=== PATIENT | female | born 2000 | race Caucasian/White ===

== ENCOUNTER 2021-10-21 22:16 | Inpatient (IN) ==
--- NOTE | 2021-10-21 22:38 | History & Physical Report ---
Date of Service October 21, 2021 Assessment & Plan (1) Active labor at term: Plan: admit, iv, labs. fhts categ 1. prefers to labor naturally. her water did not break last . may need arom. pt aware. History of Present Illness Chief Complaint: regular ctx Primary Care Provider: NO PCP 21yo at 40 4/7wks ega with cc of regular ctx. No rom, vb. +FM. Contraction q 2-4. PNC c/b. 1. Late presentation PNL RH pos, RI, GBS neg OBH: x 1 GYNH: nl paps Allergies Allergy/AdvReac Type Severity Reaction Status Date / Time No Known Allergies Allergy Verified 10/19/21 10:22 Home Medications Medication Instructions Recorded Confirmed Type prenat.vits,leon,xlf-lmqa-glylq 1 tab PO DAILY 07/03/21 10/19/21 History Patient History Medical History (Updated 10/21/21 @ 22:50 by Fidelia Bahena MD, FACOG) Chicken pox Varicella vaccination Surgical History (Updated 07/03/21 @ 15:28 by Carmen WILBURN, LASHAWN) No significant past surgical history Family History (Updated 07/03/21 @ 15:16 by Carmen WILBURN, LASHAWN) Grandfather (Maternal) Lung cancer Aunt Breast cancer Denies family history of Ovarian cancer Diabetes Colorectal cancer Hypertension Social History (Updated 07/03/21 @ 15:28 by Carmen WILBURN, RN) Smoking Status: Never smoker marital status: Single marital status details: D'Ante Hickman (21) [phone] Current Living Situation: Significant Other Current Living Situation Comment: Boyfriend and daughter, 2 dogs current occupational status: employed current occupation: Director Retirement at [employer] Review of Systems as per Subjective / HPI Physical Exam Constitutional: WD/WN, vitals as above Gastrointestinal (Abdomen): soft gravid nt efw 7-8# Musculoskeletal: no edema Neurologic: grossly normal Psychiatric: A+Ox3, euthymic affect Genitourinary: Manual OB Exam: + cervical dilation 7 cm, + cervical effacement 100% and + station 0 OB Exam Monitor Tracing: + external FHT monitor used, + external uterine monitor used (q2-4), + category I and + normal FHT variability Results & Data ([place]) Vital Signs (Past 12 Hours) Vital Signs Pulse BP 10/21/21 22:35 86 112/79 Coding Level of Care Code None Diagnoses Active labor at term
[2021-10-21] MEDS ORDERED: OXYTOCIN 30 UNITS/500 ML BAG IV PRN (22:44)
[2021-10-21] MEDS: LACTATED RINGER'S 1,000 ML IV PRN (23:09)
[2021-10-21 23:13] LABS: Hematocrit (blood only) 36.7 % (37-47); Hemoglobin 12.2 g/dL (12.0-16.0); Mean Corpuscular Hemoglobin 31.2 pg (25-34); Mean Corpuscular Hgb Conc 33.2 g/dL (32-36); Mean Corpuscular Volume 93.9 fL (80-100); Platelet Count 282 K/uL (130-400); RDW Coefficient of Variation 13.3 % (11.5-14.5); RDW Standard Deviation 45.3 fL (36.4-46.3); Red Blood Count 3.91 M/uL (4.2-5.4); White Blood Count 11.21 K/uL (4.8-10.8)
[2021-10-21] MEDS ORDERED: SODIUM CHLORIDE 0.9% INJ 10 ML VIAL ONE (23:14)
[2021-10-21] MEDS ORDERED: ePHEDrine sulfate 50 MG/ML AMP ONE (23:14)
[2021-10-21] MEDS ORDERED: fentaNYL citrate 100 MCG/2 ML VIAL ONE (23:14)
[2021-10-21] MEDS ORDERED: fentaNYL 2MCG/ML ROPIVACAINE 1.25MG/ML 100 ML BAG EPI ONE (23:15)
[2021-10-21] MEDS ORDERED: BUPIVACAINE 0.25% 30 ML VIAL ONE (23:15)
[2021-10-21] MEDS ORDERED: NALOXONE HCL 0.4 MG/1 ML VIAL/CARP IV PRN (23:31)
[2021-10-21] MEDS ORDERED: ONDANSETRON INJ 2 MG/ML 2 ML VIAL IV PRN (23:31)
[2021-10-21] MEDS ORDERED: NALOXONE HCL 1 MG in SODIUM CHLORIDE 0.9% 1000ML 1,000 ML IV PRN (23:31)
[2021-10-21] MEDS ORDERED: NALBUPHINE HCL INJ 10 MG/ML AMP IV PRN (23:31)
[2021-10-21] MEDS ORDERED: fentaNYL 2MCG/ML ROPIVACAINE 1.25MG/ML 100 ML BAG EPI PRN (23:31)
[2021-10-21] MEDS ORDERED: ePHEDrine sulfate 50 MG/ML AMP IV PRN (23:31)
[2021-10-21] MEDS ORDERED: diphenhydrAMINE 50 MG/ML VIAL IV PRN (23:31)
--- NOTE | 2021-10-21 23:33 | Anesthesiology Consultation ---
Date of Service October 21, 2021 Assessment & Plan (1) Encounter for pre-operative examination: Chart Review Chart Review: Patient NOT seen in Pre Admission Testing and Acceptable Risk for Labor Epidural Consults Requested none History Allergies Allergy/AdvReac Type Severity Reaction Status Date / Time No Known Allergies Allergy Verified 10/19/21 10:22 Medications Home Medications Medication Instructions Recorded Confirmed Last Taken prenat.vits,leon,rgg-oqup-ypsky 1 tab PO DAILY 07/03/21 10/19/21 Unknown Active Medications Generic Name Dose Route Start Last Admin Trade Name Freq PRN Reason Stop Dose Admin Lactated Ringer's 1,000 mls @ 125 mls/hr 10/21/21 22:44 10/21/21 23:09 Lr IV 10/23/21 22:43 999 mls/hr .Q8H PRN Administration L&D Protocol Protocol Past Medical History Medical History Chicken pox Varicella vaccination Exercise / Class Metabolic Activity II 4-5 Yardwork/Stairs/Walk up hill Past Family History Family History Grandfather (Maternal) Lung cancer Aunt Breast cancer Denies family history of Ovarian cancer Diabetes Colorectal cancer Hypertension Past Surgical History Surgical History No significant past surgical history Past Anesthesia History No Hx of Anesthesia Complications and No Family Hx of Anesthesia Complications History of PONV No Hx of PONV and No Hx of Motion Sickness Social History Smoking Status: Never smoker Physical Exam Vital Signs Last Vital Signs Pulse 75 10/21/21 23:50 BP 167/76 H 10/21/21 23:50 Pulse Ox 99 10/21/21 23:48 Testing Laboratory Results 10/21/21 22:53
[2021-10-22] MEDS: LACTATED RINGER'S 1,000 ML IV PRN (00:12)
--- NOTE | 2021-10-22 01:56 | Delivery Summary ---
Vaginal Delivery Summary Date of Service October 22, 2021 Vaginal Delivery Summary The patient dilated to complete and pushed to deliver a viable female infant Apgars 8 and 9 via over intact perineum. Mouth and nose bulb suctioned at perineum. Shoulders and body delivered with ease. Infant was vigorous and crying at . Cord clamped at 60 seconds of life and to maternal abdomen where the cord was then doubly clamped and cut. Placenta delivered spontaneously and intact, three-vessel cord. Hemostasis achieved with dilute pitocin and uterine massage and drainage of the bladder for approximately 75 cc under sterile conditions. Cervix and sulci intact. Bilateral periurethral lacerations reapproximated with 4-0 vicryl. EBL 300 cc. Mother and baby in stable recovery. [facility] Vaginal Delivery Charge Delivery Type Details:
[2021-10-22] MEDS ORDERED: oxyCODONE/ACETAMINOPHEN 5mg/325mg TAB PO PRN (02:33)
[2021-10-22] MEDS ORDERED: OXYTOCIN 20 UNITS in LACTATED RINGER'S 1,000 ML IV SCH (02:33)
[2021-10-22] MEDS ORDERED: ACETAMINOPHEN 325 MG TAB PO PRN (02:33)
[2021-10-22] MEDS ORDERED: OXYTOCIN 30 UNITS/500 ML BAG IV PRN (02:33)
[2021-10-22] MEDS ORDERED: HYDROCORTISONE ACETATE 25 MG SUPP PR PRN (02:33)
[2021-10-22] MEDS ORDERED: DIPHTHERIA/TETANUS/PERTUSSIS 0.5 ML SYR/VIAL IM ONE (02:33)
[2021-10-22] MEDS ORDERED: BENZOCAINE 20% AER SPR 82.5 GM CAN EXT PRN (02:33)
--- NOTE | 2021-10-22 03:30 | Anesthesia Procedure Note ---
Date of Service October 22, 2021 Anesthesia Post Epidural Note Vital Signs Vital Signs: Temp Pulse Resp BP Pulse Ox 36.7 C 62 20 97/50 L 97 10/22/21 01:33 10/22/21 03:14 10/22/21 03:00 10/22/21 03:14 10/22/21 01:54 Pain Intensity Lower Abdomen: Pain Intensity: 0 Notes Mental Status: alert / awake / arousable Patient Amnestic to Procedure: No Nausea / Vomiting: adequately controlled Pain: adequately controlled Airway Patency, RR, SpO2: stable & adequate BP & HR: stable & adequate Hydration State: stable & adequate Neuraxial Anesthesia: was administered and sensory block is resolving Anesthetic Complications: no major complications apparent and Pt Satisfied with anesthetic care Epidural: Removed without complications and With tip intact
[2021-10-22] MEDS: IBUPROFEN 600 MG TAB PO PRN ×4 (04:09→19:31)
[2021-10-22] MEDS: DOCUSATE SODIUM 100 MG CAP PO SCH ×2 (08:29→20:28)
[2021-10-22] MEDS: PRENATAL VITAMIN 1 TAB PO SCH (08:29)
[2021-10-23] MEDS: IBUPROFEN 600 MG TAB PO PRN ×2 (01:52→07:39)
--- NOTE | 2021-10-23 06:13 | Obstetrical Progress Note ---
Date of Service <Sara McgowanDO - Last Filed: 10/23/21 06:49> October 23, 2021 Assessment & Plan <Sara Juan MDO - Last Filed: 10/23/21 06:49> (1) Encounter for care and examination after delivery: 21 yo post op day1 from , doing well. -Continue routine post care. -vital signs reviewed and WNL (Tmax 36.6) -Blood Type A+, GBS-, Rubella immune -Encourage ambulation, monitor and control pain with Motrin, tylenol PRN, resume regular diet, monitor lochia -encourage breast feeding -hemoglobin 12.7 Day #:: 1 <Fidelia Bahena MD, FACOG - Last Filed: 10/23/21 07:10> (1) Encounter for care and examination after delivery: Subjective <Sara Juan MDO - Last Filed: 10/23/21 06:49> Ambulation: ambulating normally Voiding: no voiding problems Passing Gas:: Yes Diet Tolerance:: regular diet Lochia:: Small Feeding Type:: breast feeding Current Pain Level(1-10): 0 Review of Systems Denies fever, chills, sweats Denies shortness of breath, difficulty breathing, chest pain, palpitations, chest pressure. Denies breast pain. Denies dysuria. Denies headache or changes in vision. Physical Exam <Sara Mcgowan - Last Filed: 10/23/21 06:49> General: Alert, oriented. No acute distress. Cardiac: Regular rate and rhythm, no murmurs/rubs/gallops. Respiratory: Clear to auscultation bilaterally a/p, no wheezes/rales/rhonchi. No increased work of breathing. Symmetrical chest rise. No respiratory distress. Abdomen: Soft, nontender, nondistended. Bowel sounds present. Uterus: Uterine fundus firm, palpable 1 cm below umbilicus. Lower Extremities: No lower extremity edema or swelling. No deep calf pain. Aric's negative bilaterally.. Results & Data ([facility]) <Sara Juan MDO - Last Filed: 10/23/21 06:49> Vital Signs (Past 12 Hours) Vital Signs Temp Pulse Resp BP 10/22/21 23:50 36.6 C 72 16 105/68 10/22/21 20:30 36.8 C 73 18 113/74 <Fidelia Bahena MD, FACOG - Last Filed: 10/23/21 07:10> Co-Signing Physician Notes Resident Physician Supervision Note: I was present with Dr. Mcgowan during the history and exam. I discussed the case with the resident and agree with the findings and plan as documented in the note. Any exceptions or clarifications are listed here: pt doing well, eating, voiding, ambulating, wants to go home. breast feeding going well. ff 2 down nt. nt calves. ppd#1 s/p , ok to dc home, instructions reviewed, f/u 6 wk pp check. Documented By: Fidelia Bahena MD, FACOG Resident Activity Tracking <Sara Mcgowan DO - Last Filed: 10/23/21 06:49> Resident Involvement: Resident Care Provided Care Provided: Adult Hospital Medicine and OB Delivery
[2021-10-23] MEDS: DOCUSATE SODIUM 100 MG CAP PO SCH (07:38)
[2021-10-23] MEDS: PRENATAL VITAMIN 1 TAB PO SCH (07:38)
== END 2021-10-23 10:53 | disposition home or self-care (01) | DRG 807 ==
LOC: OPB 22:16 → 4S1 22:19 → 4E2 10-22 06:32